=== PATIENT | female | born 1955 | race Caucasian/White ===

== ENCOUNTER → 2017-09-28 | Outpatient (CLI) | payer BC | LOC: MC.RAD 07:22 | DX: N63.21 Unspecified lump in the left breast, upper outer quadrant (principal); Z98.890 Other specified postprocedural states ==

== ENCOUNTER → 2017-10-03 | Outpatient (CLI) | payer BC ==
[2017-10-05 12:18] LABS: PATHOLOGY PLS
== END ==
LOC: MC.RAD 12:55
PROVIDERS: Family Medicine
DX: N63.21 Unspecified lump in the left breast, upper outer quadrant (principal)

== ENCOUNTER → 2020-04-29 | Outpatient (CLI) | payer BC | LOC: MC.RAD 15:54 | DX: Z12.31 Encounter for screening mammogram for malignant neoplasm of breast (principal); Z98.890 Other specified postprocedural states ==

== ENCOUNTER → 2020-06-16 | Outpatient (CLI) | payer BC | LOC: COL.RAD 07:30 | DX: R10.12 Left upper quadrant pain (principal); R14.0 Abdominal distension (gaseous) ==

== ENCOUNTER → 2020-10-27 | Outpatient (CLI) | payer BC | LOC: COL.RAD 08:46 | DX: K44.9 Diaphragmatic hernia without obstruction or gangrene (principal) ==

== ENCOUNTER 2020-12-09 05:27 | Day surgery (SDC) | payer BC ==
[2020-12-09] VITALS (11 sets, daily range): BP systolic 95–129; BP diastolic 49–72; PULSE 72–93; TEMP 98.2–98.9
[~2020-12-09] VITALS: Ht 159.4 cm; Wt 55.9 kg
[2020-12-09] MEDS ORDERED: LIPITOR 40MG TA40 MG PO (06:03)
[2020-12-09] MEDS ORDERED: ERGOCALCIFER50000 IU PO (06:03)
[2020-12-09] MEDS ORDERED: ARIMIDEX1 MG PO (06:03)
[2020-12-09] MEDS ORDERED: FOSAMAX 70MG TA70 MG PO (06:03)
[2020-12-09] MEDS ORDERED: PRIL40 PO (06:05)
[2020-12-09] MEDS ORDERED: ESTRACE0.1 MG/GM VG (06:05)
--- NOTE | 2020-12-09 10:15 | NUR ---
To room 221 via bed per pacu nurse Erin arthur Alert, stable. Visits with nurse about getting things out of her bag. Denies any pain or discomfort at this time.
--- NOTE | 2020-12-09 11:00 | NUR ---
Rests in bed with eyes closed. Resperations even and unlabored.
--- NOTE | 2020-12-09 12:45 | NUR ---
Rests in bed, alert. Having lunch. Denies any discomfort or pain at this time.
[2020-12-10 04:00] VITALS: BP 130/75; PULSE 82; TEMP 97.8
[2020-12-10 07:00] VITALS: BP 142/78; PULSE 82; TEMP 97.8
[2020-12-10] MEDS ORDERED: NORCO 325 MG-51 TAB PO (07:23)
--- NOTE | 2020-12-10 09:35 | NUR ---
Initial visit; Patient thanked [employer] Adjuster for looking in on her and offering God's blessings.
--- NOTE | 2020-12-10 09:45 | NUR ---
0910 DIETARY CONSULT COMPLETED. PT UPDATED ON PLAN OF CARE. READY FOR DISCHARGE.
== END 2020-12-10 10:10 | disposition home or self-care (01) ==
LOC: SDCO 05:27 → OB 10:15 → SDCO 12-10 10:10
DX: K21.00 Gastro-esophageal reflux disease with esophagitis, without bleeding (principal); K44.9 Diaphragmatic hernia without obstruction or gangrene; E78.00 Pure hypercholesterolemia, unspecified; Z20.822 Contact with and (suspected) exposure to COVID-19; Z85.3 Personal history of malignant neoplasm of breast; Z79.811 Long term (current) use of aromatase inhibitors; Z80.0 Family history of malignant neoplasm of digestive organs; Z79.83 Long term (current) use of bisphosphonates
CPT/HCPCS: OP; J1170; J2704; J3010; J7120